=== PATIENT | female | born 1930 | race Caucasian/White ===

== ENCOUNTER 2019-11-22 13:35 | Outpatient (CLI) | payer MEDICARE ==
[2019-11-22 14:57] LABS: BASOPHILS # (AUTO) 0.1 /CMM (0.0-0.2); BASOPHILS % (AUTO) 0.8 % (0.0-2.0); EOSINOPHILS % (AUTO) 3.2 % (0.0-6.0); HEMATOCRIT 52 % (33-45); HEMOGLOBIN 15.9 g/dL (11.5-14.8); LYMPHOCYTES # (AUTO) 1.2 /CMM (0.8-4.8); LYMPHOCYTES % (AUTO) 7.4 % (20.0-44.0); MEAN CORPUSCULAR HGB CONC 31 g/dl (31.0-36.0); MEAN CORPUSCULAR VOLUME 69 fL (82-100); MONOCYTES # (AUTO) 0.9 /CMM (0.1-1.30); MONOCYTES % (AUTO) 5.2 % (2.0-12.0); NEUTROPHILS # (AUTO) 13.8 /CMM (1.8-8.9); NEUTROPHILS % (AUTO) 83.4 % (43.0-81.0); RED BLOOD CELL COUNT(AUTO) 7.49 MIL/uL (4.0-5.2); WHITE BLOOD COUNT (AUTO) 16.5 K/uL (4.3-11.0)
[2019-11-22 15:06] LABS: ALBUMIN 4.1 g/dL (3.4-5.0)
[2019-11-22 15:08] LABS: C-REACTIVE PROTEIN 0.7 mg/dL (0.0-0.9); PLATELET COUNT (AUTO) 1066 /CMM (150-450); PREALBUMIN 25.4 MG/DL (18.0-35.7)
[2019-11-22 15:22] LABS: EOSINOPHILS % (MANUAL) 2 % (0-4); LYMPHOCYTES % (MANUAL) 10 % (16-48); MONOCYTES % (MANUAL) 6 % (0-11.0); NEUTROPHILS % (MANUAL) 82 (42-76)
== END 2019-11-22 23:59 | disposition home health service (06) ==
LOC: WOU 13:35
PROVIDERS: ATTEND Podiatrist Foot & Ankle Surgery
DX: T86.828 Other complications of skin graft (allograft) (autograft) (principal); D45 Polycythemia vera; C44.92 Squamous cell carcinoma of skin, unspecified; I10 Essential (primary) hypertension
CPT/HCPCS: 36415; 71045; 73590; 82040; 83036; 84134; 85025; 85652; 86140; 87070; 87077; 87106; 87186; G0463

== ENCOUNTER 2019-11-28 10:30 | Outpatient (CLI) | payer MEDICARE | END 2019-11-28 23:59 | disposition home health service (06) | LOC: WOU 10:30 | PROVIDERS: ATTEND Podiatrist Foot & Ankle Surgery | DX: T81.42XA Infection following a procedure, deep incisional surgical site, initial encounter (principal); L97.223 Non-pressure chronic ulcer of left calf with necrosis of muscle; B96.5 Pseudomonas (aeruginosa) (mallei) (pseudomallei) as the cause of diseases classified elsewhere; B37.2 Candidiasis of skin and nail; D45 Polycythemia vera; C44.92 Squamous cell carcinoma of skin, unspecified | CPT/HCPCS: 11043 ==

== ENCOUNTER 2019-12-05 10:25 | Outpatient (CLI) | payer MEDICARE | END 2019-12-05 23:59 | disposition home health service (06) | LOC: WOU 10:25 | PROVIDERS: ATTEND Podiatrist Foot & Ankle Surgery | DX: T81.49XA Infection following a procedure, other surgical site, initial encounter (principal); B96.5 Pseudomonas (aeruginosa) (mallei) (pseudomallei) as the cause of diseases classified elsewhere; B37.2 Candidiasis of skin and nail; L97.223 Non-pressure chronic ulcer of left calf with necrosis of muscle; T86.828 Other complications of skin graft (allograft) (autograft); D45 Polycythemia vera; C44.92 Squamous cell carcinoma of skin, unspecified | CPT/HCPCS: 11043 ==

== ENCOUNTER 2019-12-12 10:25 | Outpatient (CLI) | payer MEDICARE | END 2019-12-12 23:59 | disposition home health service (06) | LOC: WOU 10:25 | PROVIDERS: ATTEND Podiatrist Foot & Ankle Surgery | DX: T86.828 Other complications of skin graft (allograft) (autograft) (principal); L97.223 Non-pressure chronic ulcer of left calf with necrosis of muscle; C44.92 Squamous cell carcinoma of skin, unspecified; D45 Polycythemia vera | CPT/HCPCS: 11043 ==

== ENCOUNTER 2019-12-19 10:20 | Outpatient (CLI) | payer MEDICARE | END 2019-12-19 23:59 | disposition home health service (06) | LOC: WOU 10:20 | PROVIDERS: ATTEND Podiatrist Foot & Ankle Surgery | DX: T86.828 Other complications of skin graft (allograft) (autograft) (principal); L97.223 Non-pressure chronic ulcer of left calf with necrosis of muscle; D45 Polycythemia vera; C44.92 Squamous cell carcinoma of skin, unspecified | CPT/HCPCS: 11043 ==

== ENCOUNTER 2019-12-26 10:00 | Outpatient (CLI) | payer MEDICARE | END 2019-12-26 23:59 | disposition home health service (06) | LOC: WOU 10:00 | PROVIDERS: ATTEND Podiatrist Foot & Ankle Surgery | DX: T86.828 Other complications of skin graft (allograft) (autograft) (principal); L97.223 Non-pressure chronic ulcer of left calf with necrosis of muscle; C44.92 Squamous cell carcinoma of skin, unspecified; D45 Polycythemia vera | CPT/HCPCS: 11043 ==

== ENCOUNTER 2020-01-02 10:30 | Outpatient (CLI) | payer MEDICARE ==
[2020-01-02] MEDS ORDERED: COLLAGENASE 5 GM TUBE UD TP ONE (10:54)
== END 2020-01-02 23:59 | disposition home health service (06) ==
LOC: WOU 10:30
PROVIDERS: ATTEND Podiatrist Foot & Ankle Surgery
DX: T86.828 Other complications of skin graft (allograft) (autograft) (principal); L97.223 Non-pressure chronic ulcer of left calf with necrosis of muscle; C44.92 Squamous cell carcinoma of skin, unspecified; D45 Polycythemia vera; B35.1 Tinea unguium; M79.675 Pain in left toe(s); M79.674 Pain in right toe(s)
CPT/HCPCS: 11043

== ENCOUNTER 2020-01-09 10:30 | Outpatient (CLI) | payer MEDICARE ==
[2020-01-09] MEDS ORDERED: COLLAGENASE 5 GM TUBE UD TP ONE (11:20)
== END 2020-01-09 23:59 | disposition home health service (06) ==
LOC: WOU 10:30
PROVIDERS: ATTEND Podiatrist Foot & Ankle Surgery
DX: T86.828 Other complications of skin graft (allograft) (autograft) (principal); L97.222 Non-pressure chronic ulcer of left calf with fat layer exposed; C44.92 Squamous cell carcinoma of skin, unspecified; M79.675 Pain in left toe(s); M79.674 Pain in right toe(s); B35.1 Tinea unguium
CPT/HCPCS: 11042

== ENCOUNTER 2020-01-16 10:30 | Outpatient (CLI) | payer MEDICARE ==
[2020-01-16] MEDS ORDERED: LIDOCAINE SOLN 4% 50 ML BOTTLE ONE (10:37)
[2020-01-16] MEDS ORDERED: COLLAGENASE 5 GM TUBE UD TP ONE (10:54)
[2020-01-16] MEDS ORDERED: HYDROCORTISONE 1% CREAM 28.35 GM TUBE TP ONE (10:54)
== END 2020-01-16 23:59 | disposition home health service (06) ==
LOC: WOU 10:30
PROVIDERS: ATTEND Podiatrist Foot & Ankle Surgery
DX: T86.828 Other complications of skin graft (allograft) (autograft) (principal); L97.222 Non-pressure chronic ulcer of left calf with fat layer exposed; C44.92 Squamous cell carcinoma of skin, unspecified; D45 Polycythemia vera; M79.675 Pain in left toe(s); M79.674 Pain in right toe(s); B35.1 Tinea unguium
CPT/HCPCS: 11042

== ENCOUNTER 2020-01-23 10:30 | Outpatient (CLI) | payer MEDICARE ==
[2020-01-23] MEDS ORDERED: COLLAGENASE 5 GM TUBE UD TP ONE (10:59)
== END 2020-01-23 23:59 | disposition home health service (06) ==
LOC: WOU 10:30
PROVIDERS: ATTEND Podiatrist Foot & Ankle Surgery
DX: T86.828 Other complications of skin graft (allograft) (autograft) (principal); L97.222 Non-pressure chronic ulcer of left calf with fat layer exposed; C44.92 Squamous cell carcinoma of skin, unspecified; D45 Polycythemia vera; B35.1 Tinea unguium; M79.675 Pain in left toe(s); M79.674 Pain in right toe(s)
CPT/HCPCS: 11042

== ENCOUNTER 2020-01-30 10:30 | Outpatient (CLI) | payer MEDICARE ==
[2020-01-30] MEDS ORDERED: LIDOCAINE SOLN 4% 50 ML BOTTLE ONE (10:38)
[2020-01-30] MEDS ORDERED: COLLAGENASE 5 GM TUBE UD TP ONE (11:08)
[2020-01-30] MEDS ORDERED: HYDROCORTISONE 1% CREAM 28.35 GM TUBE TP ONE (11:09)
== END 2020-01-30 23:59 | disposition home health service (06) ==
LOC: WOU 10:30
PROVIDERS: ATTEND Podiatrist Foot & Ankle Surgery
DX: T86.828 Other complications of skin graft (allograft) (autograft) (principal); L97.222 Non-pressure chronic ulcer of left calf with fat layer exposed; C44.92 Squamous cell carcinoma of skin, unspecified; B35.1 Tinea unguium; M79.674 Pain in right toe(s); M79.675 Pain in left toe(s)
CPT/HCPCS: 11042

== ENCOUNTER 2020-02-06 10:15 | Outpatient (CLI) | payer MEDICARE ==
[2020-02-06] MEDS ORDERED: COLLAGENASE 5 GM TUBE UD TP ONE (11:03)
== END 2020-02-06 23:59 | disposition home health service (06) ==
LOC: WOU 10:15
PROVIDERS: ATTEND Podiatrist Foot & Ankle Surgery
DX: T86.828 Other complications of skin graft (allograft) (autograft) (principal); L97.222 Non-pressure chronic ulcer of left calf with fat layer exposed; C44.92 Squamous cell carcinoma of skin, unspecified; D45 Polycythemia vera; M79.675 Pain in left toe(s); M79.674 Pain in right toe(s); B35.1 Tinea unguium; I10 Essential (primary) hypertension
CPT/HCPCS: 11042

== ENCOUNTER 2020-02-13 10:30 | Outpatient (CLI) | payer MEDICARE ==
[2020-02-13] MEDS ORDERED: LIDOCAINE SOLN 4% 50 ML BOTTLE ONE (10:32)
[2020-02-13] MEDS ORDERED: COLLAGENASE 5 GM TUBE UD TP ONE (10:41)
[2020-02-13] MEDS ORDERED: HYDROCORTISONE 1% CREAM 28.35 GM TUBE TP ONE (10:42)
== END 2020-02-13 23:59 | disposition home health service (06) ==
LOC: WOU 10:30
PROVIDERS: ATTEND Podiatrist Foot & Ankle Surgery
DX: T86.828 Other complications of skin graft (allograft) (autograft) (principal); L97.222 Non-pressure chronic ulcer of left calf with fat layer exposed; C44.92 Squamous cell carcinoma of skin, unspecified; D45 Polycythemia vera; B35.1 Tinea unguium; M79.675 Pain in left toe(s); M79.674 Pain in right toe(s)
CPT/HCPCS: 11042

== ENCOUNTER 2020-02-20 10:30 | Outpatient (CLI) | payer MEDICARE ==
[2020-02-20] MEDS ORDERED: COLLAGENASE 5 GM TUBE UD TP ONE (11:13)
== END 2020-02-20 23:59 | disposition home health service (06) ==
LOC: WOU 10:30
PROVIDERS: ATTEND Podiatrist Foot & Ankle Surgery
DX: T86.828 Other complications of skin graft (allograft) (autograft) (principal); L97.822 Non-pressure chronic ulcer of other part of left lower leg with fat layer exposed; D45 Polycythemia vera; C44.92 Squamous cell carcinoma of skin, unspecified; M79.675 Pain in left toe(s); M79.674 Pain in right toe(s); B35.1 Tinea unguium
CPT/HCPCS: G0463

== ENCOUNTER 2020-02-27 12:28 | Outpatient (CLI) | payer MEDICARE ==
[~2020-02-27 12:28] MED LIST: LIDOCAINE SOLN 4% 50 ML BOTTLE ONE
== END 2020-02-27 23:59 | disposition home health service (06) ==
LOC: WOU 12:28
PROVIDERS: ATTEND Podiatrist Foot & Ankle Surgery
DX: B35.1 Tinea unguium (principal); D45 Polycythemia vera; C44.92 Squamous cell carcinoma of skin, unspecified; M79.675 Pain in left toe(s); M79.674 Pain in right toe(s)
CPT/HCPCS: G0463

== ENCOUNTER 2020-04-12 10:30 | Outpatient (CLI) | payer MEDICARE | END 2020-04-12 23:59 | disposition home or self-care (01) | LOC: WOU 10:30 | PROVIDERS: ATTEND Podiatrist Foot & Ankle Surgery | DX: I87.2 Venous insufficiency (chronic) (peripheral) (principal); B35.1 Tinea unguium; D45 Polycythemia vera; C44.92 Squamous cell carcinoma of skin, unspecified; M79.675 Pain in left toe(s); M79.674 Pain in right toe(s) | CPT/HCPCS: G0463 ==

== ENCOUNTER 2020-07-12 10:00 | Outpatient (CLI) | payer MEDICARE | END 2020-07-12 23:59 | disposition home or self-care (01) | LOC: WOU 10:00 | PROVIDERS: ATTEND Podiatrist Foot & Ankle Surgery | DX: L90.5 Scar conditions and fibrosis of skin (principal); S81.802S Unspecified open wound, left lower leg, sequela; X58.XXXS Exposure to other specified factors, sequela; R60.0 Localized edema; I87.2 Venous insufficiency (chronic) (peripheral); B35.1 Tinea unguium; C44.92 Squamous cell carcinoma of skin, unspecified | CPT/HCPCS: G0463 ==

== ENCOUNTER 2020-11-08 10:40 | Outpatient (CLI) | payer MEDICARE | END 2020-11-08 23:59 | disposition home or self-care (01) | LOC: WOU 10:40 | PROVIDERS: ATTEND Podiatrist Foot & Ankle Surgery | DX: L90.5 Scar conditions and fibrosis of skin (principal); D45 Polycythemia vera; B35.1 Tinea unguium; M79.675 Pain in left toe(s) | CPT/HCPCS: G0463 ==